=== PATIENT | male | born 1930 | race Caucasian/White ===

== ENCOUNTER 2017-07-24 08:16 | Inpatient (IN) | payer OTHER ==
[2017-07-24] VITALS (10 sets, daily range): BP systolic 123–165; BP diastolic 59–97
[~2017-07-24] VITALS: Ht 177.8 cm; Wt 107.0 kg
[~2017-07-24 08:16] MED LIST: ACETAMINOPHEN650 M5 PO; ADULT LOW DOSE81 MG PO; BACTRIM DS TAB1 EACH PO; BUMETANIDE 1 MG1 M1 PO; CALCIUM +D & M1 EACH PO; CALCIUM 600 +1 EAC5 PO; COLACE100 MG PO; EFFIENT10 MG PO; ELIQUIS5 MG PO; ISOSORBIDE MONO30 M1 PO; K-DUR 20 MEQ T20 MEQ PO; KLOR-CON 1010 MEQ; LASIX 40 MG TAB40 M1 PO; LAXATIVE17.2 MG PO; LISINOPRIL20 MG PO; LOPRESSOR 50 MG50 M1 PO; LUMIGAN2.5 M1; LUMIGAN2.5 M1 OPHTHALMIC; MULTIVITAMINS PO; NITROSTAT0.4 MG SL; PACERONE 200 M200 M1 PO; PACERONE 200 M200 MG PO; PLAVIX 75 MG TA75 MG PO; POLYVINYL ALCOH15 ML; POTASSIUM20 PO; PRADAXA150 MG PO; PREVACID15 MG PO; RANEXA 500 MG500 M1 PO; SIMVASTATIN20 MG PO; SIMVASTATIN40 MG PO; STOOL SOFTENER50 MG
[2017-07-24] MEDS ORDERED: MIRALAX17 GM PO (08:32)
[2017-07-24] MEDS ORDERED: PRESERVISION T1 EACH PO (08:32)
--- NOTE | 2017-07-24 08:42 | NUR ---
STEMI CALLED BY DR. FARRAR. SEE STEMI FLOWSHEET FOR DOCUMENTATION.
--- NOTE | 2017-07-24 08:51 | NUR ---
PT SENT TO CARDIAC BORDER INSPECTOR W/ BORDER INSPECTOR STAFF, DR. SHAH & NSG PT ESCORT [place]. MONITORING IN PROGRESS W/ LIFEPAK & DEFIB PADS IN PLACE. SON TO CARDIAC BORDER INSPECTOR W/ WINE CONSULTANT, PT'S BELONGINGS W/ SECURITY. UNABLE TO OBTAIN IV ACCESS DUE TO POOR VEINS.
[2017-07-24 09:11] LABS: ABSOLUTE BASOPHILS 0.1 thou/uL (0.0-0.2); ABSOLUTE LYMPHOCYTES 1.2 thou/uL (0.8-5.3); ABSOLUTE MONOCYTES 0.5 thou/uL (0.0-1.2); ABSOLUTE NEUTROPHILS 8.5 thou/uL (1.6-8.1); BASOPHILS 1.2 %; EOSINOPHILS 0.4 %; HEMOGLOBIN 13.9 gm/dL (14.0-18.0); MCH 31.3 pg (26.0-34.0); MCHC 33.9 g/dL (28.0-37.0); MCV 92.5 fL (80.0-100.0); MONOCYTES 4.7 %; NUCLEATED RBCS 0 /100WBC; PLATELET COUNT* 336 thou/uL (150-400); POLYS 81.7 %; RBC 4.43 mil/uL (4.50-6.00); RDW-CV 14.4 % (10.5-14.5); WBC 10.4 thou/uL (4.0-11.0)
[2017-07-24 09:15] LABS: CALCIUM 8.5 mg/dL (8.5-10.1); CREATININE 1.2 mg/dL (0.6-1.3); POTASSIUM 4.2 mmol/L (3.5-5.1)
[2017-07-24 09:26] LABS: ALBUMIN 3.4 g/dL (3.4-5.0); TOTAL BILIRUBIN 0.4 mg/dL (<0.1-1.0); TOTAL PROTEIN 7.3 g/dL (6.4-8.2); TROPONIN-I LEVEL 0.48 ng/mL (<0.06)
[2017-07-24 09:29] LABS: INR 1.2; PROTIME 11.2 Seconds (9.20-11.50)
--- NOTE | 2017-07-24 11:18 | CARD ---
[address] [address] CARDIAC CATH REPORT Name: RAQUEL HAMMONDS Diego MCCONNELL Room: [address] IN .R.#: [id number] Admission: 07/24/17 Attend Phys: Dakota Linn MD, F Discharge: Date of : 12/29/28 Report #: [id number] THIS REPORT FOR: //name// APPROVED REPORT Patient Details Patient Status: In-Patient Room #: The patient is a 86 year-old male Event Personnel Betzy Canales RN Professor Of Engineering, Melanie Carter Monitor, Rjani Dao RTR Temitope Duron David Multimedia Authoring Specialist Procedures Performed Art Access - R femoral artery* , Indication STEMI Risk Factors Arterial Hypertension, Hypercholesterolemia, Coronary Artery Disease Previous Procedures/Diagnoses Previous PCI Admission/Lab Medications/Medications given during procedure Platelet Aff. Inhib., Heparin Unfract. Procedure Narrative The patient was brought emergently to the Cardiac Catheterization Laboratory and was prepped and draped in a sterile manner. The right femoral was infiltrated with 1% Lidocaine subcutaneous anesthesia. A 6fr Ultimum Sheath sheath was inserted into the right femoral artery. Coronary angiography was performed using coronary diagnostic catheters. The right coronary system was accessed and visualized with a Diagnostic - JR4 catheter. The left coronary system was accessed and visualized with a Diagnostic - JL4 catheter. The left ventricle was accessed and visualized with a Diagnostic - PIGTAIL catheter. Left ventricular/Aortic Valve gradient assessed via catheter pullback. Left ventriculogram was performed in MEYER projection. Pre-demployment femoral angiogram was performed . Closure device was deployed with a 6 Fr Angioseal STS 6Fr. The patient tolerated the procedure well and there were no complications associated with the procedure. There was no hematoma. Long 6 [place] [address] CARDIAC CATH REPORT Name: RAQUEL HAMMONDS SR Room: [address]#: [id number] Admission: 07/24/17 Attend Phys: Dakota Linn MD, F Discharge: Date of : 12/29/28 Report #: [id number] right femoral artery because of tortuosity of the iliac artery. Because of poor venous access, a 5 citizen [place] sheath was placed in the right femoral vein. Venous sheath was sutured in place at the end of the procedure. Intraoperative Conscious Sedation Fentanyl 25 mcg Fluoro Time: 9.5 minutes Dose: DAP 745196 cGycm2 1697.67 mGy Contrast Type and Amount: Visipaque 145 ml Coronary Angiography The patient's coronary anatomy is right dominant. Diagnostic Cath Left Main 0% stenosis LAD Ostial 70% stenosis. Stent in the proximal lad that covered the takeoff of a small first diagonal branch had 0% restenosis. Mid lad had a 50% stenosis Diagonal 1 small first diagonal branch had an ostial 80% stenosis Circumflex 0% stenosis OM2 long metal stent had a mid 99% stenosis with thrombus Right Coronary ostial stent had a 40% eccentric stenosis Left Ventriculography The left ventricle is mildly dilated in size with contractility. The left ventricular ejection fraction is estimated to be 40-45%. Left ventricular wall motion abnormalities are present. There is 1+ mitral insufficiency. moderate hypokinesis noted of the distal anterolateral wall Hemodynamics The aortic pressure is 179/70 mmHg with a mean of 100 mmHg. The left ventricular pressure is 163/18 mmHg with a mean of mmHg. The left ventricular end diastolic pressure is 34 mmHg. There was no gradient across the aortic valve upon pullback. Pullback from the left ventricle to the aorta revealed no gradient across the aortic valve. PCI Technique Lesion Anticoagulation was achieved with Heparin. iv aggrastat given Percutaneous coronary intervention was performed on the second obtuse marginal branch segment. The lesion stenosis prior to intervention was 99% with KATHRYN 3 flow. A 6F XB 4.0 [place] [address] CARDIAC CATH REPORT Name: RUSSELALEXIRAQUEL Crotez SR Room: [address]#: [id number] Admission: 07/24/17 Attend Phys: Dakota Linn MD, F Discharge: Date of : 12/29/28 Report #: [id number] engage the lm ostium. A IG: BMW 190cm Interventional Guidewire was used to cross the lesion. BALLOON DILATION A Balloon catheter Trek RX 2.5 X 8 was inserted and inflated up to 18.00atm for 16seconds. Repeat angiography revealed the following post-dilatation results: 60% stenosis. STENT DEPLOYMENT A bare metal stent Vision RX 3.5 X 15 was inserted and inflated up to 9.00atm for 12seconds. Repeat angiography revealed the following post-stent deployment results: 0% stenosis. Additional Inflation: 10.00atm for 13seconds. Final angiography reveals 0 % stenosis with KATHRYN 3 flow. Conclusion 1. no restenosis noted of the stents in the proximal lad and rca 2. 99% restenosis with thrombus noted in the stent in the second marginal branch of the circumflex 3. successful placement of a new bare metal stent in the second marginal branch Recommendations Cardiac Rehabilitation Referral Aggressive Medical Therapy Medications Administered Clopidogrel <ELECTRONICALLY SIGNED> By: Dakota Linn MD, FACC 07/24/17 1118 1118 [id number] Linn MD, FACC /INF
--- NOTE | 2017-07-24 13:32 | NUR ---
CONSULTED TO PLACE MIDLINE FOR PT POST STEMI WITH FEMORAL ACCESS AND DIFFICULT PIV STICK. RISK AND BENIFITS DISCUSSED WTIH PT. VERBALIZED UNDERTANDING AND GRANTED CONSENT. ORDER NOTED AND PER PT REQUEST LEFT ARM ASSESSED AND BASILIC IDENTIFIED AND IS WIDLEY PATENT. A 4FR POWER INJECTABLE MIDLINE PLACED AFTER TIME OUT WITH PRIMARY RN PER HOSPITAL POLICY. LINE TRIMMED TO 11CM AND ADVANCED TO 0CM OUT WITH OUT DIFFICULTY. LINE SECURED AND RELEASED FOR USE. TOLERATED WELL.
--- NOTE | 2017-07-24 13:46 | EKG ---
[place] [address] ELECTROCARDIOGRAM REPORT Name: RAQUEL HAMMONDS Room: [address] ADM IN M.R.#: [id number] Admission: 07/24/17 Attend Phys: Dakota Linn MD, F Discharge: Date of : 12/29/28 Report #: [id number] THIS REPORT FOR: //name// [facility] Test Date: 2017-07-24 Test Time: 11:24:29 Pat Name: RAQUEL HAMMONDS Department: Room: [facility] Gender: M Lead Caregiver: : 1930 Requested By: Eladio Gordon Order Number: [id number] MD: Favio Kinsey Measurements Intervals [place] Rate: 62 P: 40 [place]: 164 QRS: 3 QRSD: 105 T: 68 QT: 473 QTc: 481 Interpretive Statements Sinus arrhythmia Low voltage, extremity and precordial leads Borderline prolonged QT interval Compared to ECG 08/30/2012 07:57:57 Low QRS voltage now present Sinus rhythm no longer present Myocardial infarct finding no longer present Electronically Signed On 07-24-2017 13:45:52 BINDERY MACHINE TENDER by Favio Kinsey [email or web address] <ELECTRONICALLY SIGNED> By: Favio Kinsey MD, [facility] 07/24/17 1345 1124 1124 Favio Kinsey MD, [facility] /EPI
--- NOTE | 2017-07-24 16:33 | EKG ---
[place] [address] ELECTROCARDIOGRAM REPORT Name: RAQUEL HAMMONDS Room: [address] ADM IN M.R.#: [id number] Admission: 07/24/17 Attend Phys: Dakota Linn MD, F Discharge: Date of : 12/29/28 Report #: [id number] THIS REPORT FOR: //name// [facility] ED Test Date: 2017-07-24 Test Time: 08:19:40 Pat Name: RAQUEL HAMMONDS Department: Room: [address] Gender: M Business Executive: MS : 1930 Requested By: Dakota Linn Order Number: [id number] Reading MD: Favio Kinsey Measurements Intervals [place] Rate: 56 P: 36 DC: 157 QRS: -8 QRSD: 98 T: 3 QT: 485 QTc: 469 Interpretive Statements Sinus rhythm Low voltage, precordial leads Posterior infarct, acute (LCx) Lateral leads are also involved Compared to ECG 08/30/2012 07:57:57 Low QRS voltage now present Prolonged QT interval no longer present Myocardial infarct finding still present Electronically Signed On 07-24-2017 16:33:07 TURBINE ENGINE ASSEMBLER by Favio Kinsey [email or web address] <ELECTRONICALLY SIGNED> By: Favio Kinsey MD, FACC 07/24/17 1633 8 8 Favio Kinsey MD, FAC /EPI
--- NOTE | 2017-07-24 16:33 | EKG ---
[place] [address] ELECTROCARDIOGRAM REPORT Name: RAQUEL HAMMONDS Room: [address] ADM IN M.R.#: [id number] Admission: 07/24/17 Attend Phys: Dakota Linn MD, F Discharge: Date of : 12/29/28 Report #: [id number] THIS REPORT FOR: //name// [facility] ED Test Date: 2017-07-24 Test Time: 08:38:17 Pat Name: RAQUEL HAMMONDS Department: Room: [address] Gender: M Skein Winder: MS : 1930 Requested By: Dakota Linn Order Number: [id number] Reading : Favio Kinsey Measurements Intervals [place] Rate: 57 P: 10 [place]: 131 QRS: -8 QRSD: 104 T: 14 QT: 520 QTc: 507 Interpretive Statements Sinus rhythm Low voltage, precordial leads RSR' in V1 or V2, right VCD or RVH Borderline ST elevation, lateral leads Prolonged QT interval Compared to ECG 08/30/2012 07:57:57 Low QRS voltage now present Right ventricular hypertrophy now present RSR' in V1 or V2 now present ST (T wave) deviation now present Myocardial infarct finding no longer present Electronically Signed On 07-24-2017 16:33:18 CERTIFIED ORTHOTIST by Favio Kinsey [email or web address] <ELECTRONICALLY SIGNED> By: Favio Kinsey MD, [facility] 07/24/17 1633 7 7 Favio Kinsey MD, [facility] /EPI
--- NOTE | 2017-07-24 17:04 | H ---
[address] [address] HISTORY AND PHYSICAL Name: RAQUEL HAMMONDS SR Room: [address] IN M.R.#: [id number] Admission: 07/24/17 Attend Phys: Dakota Linn MD, F Discharge: Date of : 12/29/[birth year] Report #: [id number] THIS REPORT FOR: //name// CC: Dakota Savage DATE OF SERVICE: 07/24/2017 HISTORY OF PRESENT ILLNESS: The patient is an 86-year-old single white male who I was asked to see in the Emergency Room today after complaining of chest pain. The patient has an extensive past medical history. He has had up to 4 coronary artery stents placed in the past here at [facility]. He has been followed by my partner, Dr. Savage. He has a history of atrial fibrillation in the past and has been on amiodarone and Eliquis. He last saw Dr. Savage in March. He is not very active because of his age. He uses a walker. He does get short of breath with exertion. He notes occasional irregular heartbeat, but he has had no syncope. He awakened about 4 hours ago with a pain in his chest, went into his left arm, became short of breath and nauseated. The pain persisted. He called an ambulance. He was brought here to [facility]. A code STEMI was activated. I was asked to see him on an emergent basis. 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 He has a history of mild carotid stenosis, chronic kidney disease, hypertension, hyperlipidemia, sleep apnea. MEDICATIONS: Consists of amiodarone, Eliquis which he took last night, aspirin, furosemide, Imdur, lisinopril, simvastatin. ALLERGIES: He has INTOLERANCE TO FISH OIL. FAMILY HISTORY: His mother had a heart attack. SOCIAL HISTORY: He is , lives with his son in [place]. Quit smoking years ago. No alcohol abuse. REVIEW OF SYSTEMS: He apparently has had a TIA in the past. No history of asthma. He has had a peptic ulcer, no liver disease. He has chronic kidney disease, had a skin cancer removed in the past. PHYSICAL EXAMINATION: GENERAL: Revealed obese elderly male, appeared in mild distress. VITAL SIGNS: He had a blood pressure of 130/70, pulse is 60. HEENT: Mucous membranes appear dry. He was anicteric. Conjunctivae pink. NECK: Veins difficult to assess due to obesity. CHEST: [place] [address] HISTORY AND PHYSICAL Name: RUSSELALEXIRAQUEL Cortez SR Room: [address] IN .R.#: [id number] Admission: 07/24/17 Attend Phys: Dakota Linn MD, F Discharge: Date of : 12/29/28 Report #: [id number] CARDIOVASCULAR: Regular rate and rhythm. No significant murmur. ABDOMEN: Obese, soft, nontender. EXTREMITIES: Had trace edema. SKIN: Cool and dry. LABORATORY DATA: ECG, sinus bradycardia. There appeared to be ST segment elevation in 1 and aVL, ST segment depression in V2 and V3. IMPRESSION AND RECOMMENDATIONS: 1. ST-elevation myocardial infarction. Recommend cardiac catheterization. 2. Coronary stenting. The patient has been on aspirin. 3. History of atrial fibrillation. The patient is on Eliquis and amiodarone. 4. Hypertension. The patient is on an [place] inhibitor. 5. Hyperlipidemia. The patient is on a statin drug. 6. Chronic kidney disease. 7. Sleep apnea. The patient on CPAP. <ELECTRONICALLY SIGNED> By: Dakota Linn MD, FACC 07/24/17 1704 9 [id number] Linn MD, FACC /nt
--- NOTE | 2017-07-24 18:45 | NUR ---
PATIENT DOING WELL, SHEATH REMOVED, SITTING UP EATING DINNER. JUST GAVE TYLENOL FOR PAIN, NO COMPLAINTS OF SHORTNESS OF AIR OR NAUSEA. FAMILY HAS BEEN HERE TO SEE PATIENT. ALL QUESTIONS ANSWERED. MID LINE PLACED TODAY, OOZING, AGGRISTAT TO STOP AFTER THIS BAG. NO OTHER CONCERNS. BED IN LOWEST POSITION, CALL LIGHT IN REACH. WILL CONTINUE TO MONITOR.
[2017-07-25] VITALS (15 sets, daily range): BP systolic 114–167; BP diastolic 64–85
[2017-07-25 05:12] LABS: HEMATOCRIT 38.8 % (42.0-52.0); HEMOGLOBIN 13.2 gm/dL (14.0-18.0); MCH 33.8 pg (26.0-34.0); MCHC 33.9 g/dL (28.0-37.0); MPV 7.6 fl. (7.2-11.1); RBC 3.89 mil/uL (4.50-6.00); RDW-CV 12.1 % (10.5-14.5); WBC 6.2 thou/uL (4.0-11.0)
[2017-07-25 05:22] LABS: ANION GAP 10 mmol/L (7-16); BUN 24 mg/dL (7-18); CALCIUM 8.2 mg/dL (8.5-10.1); CHLORIDE 106 mmol/L (98-107); CHOLESTEROL 125 mg/dL (<200); CO2 24 mmol/L (21-32); CREATININE 1.1 mg/dL (0.6-1.3); GLUCOSE 113 mg/dL (70-99); HDL CHOLESTEROL 53 mg/dL (>40); LDL CHOLESTEROL 66 mg/dL (<100); POTASSIUM 4.2 mmol/L (3.5-5.1); SODIUM 140 mmol/L (136-145); TC:HDL 2.4 Ratio (Not establshd); TRIGLYCERIDE 32 mg/dL (<150); VLDL 6 mg/dL (<40)
[2017-07-25 05:23] LABS: SERUM ASSESSMENT Clear
--- NOTE | 2017-07-25 05:32 | NUR ---
RIGHT GROIN SITE DRESSING REMAINS C/D/I, NO HEMATOMA NOTED. MCCORD CATHETER REMOVED LAST NIGHT DUE TO BLOCKAGE, UNABLE TO IRRIGATE. BLOOD TINGED URINE NOTED IN BAG. PT HAS BEEN INCONTINENT SINCE THEN, ADEQUATE PINKISH COLORED OUTPUT NOTED IN CHUX PAD X2, JIMY CARE PROVIDED EACH TIME. DURING LAST INSTANCE PT HAD VOIDED 100ML IN URINAL AND STATED HE WAS UNABLE "TO MAKE IT IN TIME" WHICH CAUSED THE URINE LEAKAGE INTO THE CHUX. PT DENIES FEELING BLADDER FULLNESS POST VOID, BLADDER IS NOT PALPABLE. PT HAS DENIED CHEST PAIN AND SOA THROUGHOUT THIS SHIFT. O2 SAT HAS REMAINED >92% ON RA. PT C/O BACK PAIN X1, PRN HYDROCODONE GIVEN ORDERED WITH COMPLETE RELIEF, PT WAS ABLE TO SLEEP. CALL LIGHT WITHIN REACH.
[2017-07-25 05:42] LABS: MCV 99.6 fL (80.0-100.0)
--- NOTE | 2017-07-25 12:48 | EKG ---
[place] [address] ELECTROCARDIOGRAM REPORT Name: RAQUEL HAMMONDS Room: [address] ADM IN M.R.#: [id number] Admission: 07/24/17 Attend Phys: Dakota Linn MD, F Discharge: Date of : 12/29/[birth year] Report #: [id number] THIS REPORT FOR: //name// [facility] Test Date: 2017-07-25 Test Time: 08:07:10 Pat Name: RAQUEL HAMMONDS Department: Room: [address] Gender: M Senior Software Test Engineer: : 1930 Requested By: Dakota Linn Order Number: [id number] Reading MD: Dakota Linn Measurements Intervals [place] Rate: 73 P: 41 ME: 186 QRS: 5 QRSD: 100 T: QT: 457 QTc: 504 Interpretive Statements Sinus rhythm Low voltage, extremity and precordial leads Probable anteroseptal infarct, old Nonspecific T abnormalities, lateral leads Prolonged QT interval Compared to ECG 07/24/2017 11:24:29 no change Electronically Signed On 07-25-2017 12:48:19 GRAILS WEB APPLICATION DEVELOPER by Dakota Linn [email or web address] <ELECTRONICALLY SIGNED> By: Dakota Linn MD, [facility] 07/25/17 [phone] 0807 Dakota Linn MD, [facility] /EPI
--- NOTE | 2017-07-25 17:41 | NUR ---
REPORT RECIEVED FROM SHRUTI RN IN ICU OF EXPECTED TRANSFER @ 1640- DX: STEMI WITH CATH COMPLETED 07/24/17- PT ARRIVED TO UNIT VIA W/C TO ROOM 233 AT 1730- MULTIPLE SPINDLE ROUTER OPERATOR PLACED ORDERED, TRACING SR- VS 97.6 20 114/70 86 99% ON RA- COURSE LUNG SOUNDS NOTED WITH NON-PRODUCTIVE COUGH-ABDOMEN SOFT/ROUND/NON-TENDER, BS X4 QUADS- PT REPORTS LAST BM PRIOR TO ADMISSION-2+ EDEMA NOTED, LEG ELEAVATION ENCOURAGED- RIGHT GROIN SIGHT C/D/I INTACT AND DIRECT OF REAL ESTATE, NO HEMATOMA NOTED- LEFT UE MIDLINE NOTED, DRESSING INTACT WITH DRY BLOOD NOTED-PT DENIES ANY C/O PAIN/DISCOMFORT AT THIS TIME- CALL LIGHT AND PERSONAL BELONGINGS WITH IN REACH- BED ALARM IN PLACE AND WORKING FOR PT SAFETY- HOURLY ROUNDS IN PLACE R/T SAFETY/NEEDS- ALL NEEDS MET AT THIS TIME-WCTM
[2017-07-26] VITALS (8 sets, daily range): BP systolic 97–136; BP diastolic 55–72
--- NOTE | 2017-07-26 05:46 | NUR ---
ASSUMED CARE AROUND 1930. PT A/OX4 AND PLEASANT, TELIDA. RESTED SOME TONIGHT. TELE TRACING SR THEN AFIB WITH HR UP TO 110'S- HX AFIB. ON ROOM AIR. MIDLINE SL. DENIES ANY PAIN. VOIDING PER URINAL. VSS, AFEBRILE. NO NEW CONCERNS VOICED. SEE CHARTING. CALL LIGHT IN REACH, BEDALARM IN PLACE, WILL CONTINUE WITH PLAN OF CARE.
--- NOTE | 2017-07-26 11:30 | NUR ---
MET WITH PT AND /ERVIN TO DISCUSS HOME SITUATION/DC PLANNING. PT LIVES WITH SONS/CESAR AND SD. CESAR IS RETIRED BUT SD STILL WORKS AND IS GONE 'ALOT.' PT HAS BEEN FAIRLY INDEPENDENT AT HOME. USES WALKER OR CANE AND HAS 2 OF EACH. HE DRIVES SOME. GOES OUT TO EAT FREQUENTLY AND ADMITS DOESN'T FOLLOW A SPECIAL DIET. PT AND ERVIN BOTH STATE THEY ARE INTERESTED IN SNF, NOT SURE SONS CAN ASSIST PT AT HOME ENOUGH. DISCUSSED FACILITIES AND QUALIFIERS FOR SNF, AWAIT THERAPY EVALS. DISCUSSED OPTIONS, THEY ARE INTERESTED IN [facility], CALL TO [facility], THEY ARE AT [facility] AND HAVE NO BEDS. PER ERVIN, MOST OF THE FAMILY LIVES NEAR [facility] AND THEY PREFER TO CONSIDER OPTIONS THERE. THEY CHOSE EITHER [facility] (1) OR [facility] (2). CALLED AND FAXED INITIAL REFERRAL TO [facility]. WILL FAX PT/OT NOTES WHEN OBTAINED
--- NOTE | 2017-07-26 13:01 | NUR ---
RECEIVED PT CARE 0700. PT IS ALERT AND ORIENTED X4. VSS. ACTUARY CLERK TRACING AFIB. PATIENT DENIES ANY SOA. O2 SAT 95% ON ROOM AIR. VOIDING PER URINAL. UP TO THE EDGE OF BED FOR BREAKFAST. AM ASSESSMENT CHARTED. MEDS PER MAR. MEDICATIONS ADJUSTED PER CARDIOLOGY. PLANNING TO KEEP PATIENT ANOTHER NIGHT AND DC TO SNF TOMORROW. CALL LIGHT WITHIN REACH. WILL CONTINUE TO MONITOR.
[2017-07-27 00:02] VITALS: BP 109/63
[2017-07-27 04:00] VITALS: BP 119/74
--- NOTE | 2017-07-27 04:26 | NUR ---
Pt in afib at beginning of shift. BP 100/60; held bedtime dose of lisinopril. At 2324, pt converted to SR; remains in SR to this time. C/O heartburn/upset stomach early in shift, lemon-grand portage soda given. Afterwards, pt states he feels better. No complaints otherwise. Will continue to monitor.
[2017-07-27 07:30] VITALS: BP 139/81
--- NOTE | 2017-07-27 12:15 | EKG ---
[place] [address] ELECTROCARDIOGRAM REPORT Name: RAQUEL HAMMONDS SR Room: [place] [address] ADM IN M.R.#: [id number] Admission: 07/24/17 Attend Phys: Dakota Linn MD, F Discharge: Date of : 12/29/[birth year] Report #: [id number] THIS REPORT FOR: //name// [facility] Test Date: 2017-07-27 Test Time: 08:58:17 Pat Name: RAQUEL HAMMONDS Department: Room: [place] [address] Gender: M Bicycle Assembler: : 1930 Requested By: Dakota Linn Order Number: [id number] MD: Dakota Linn Measurements Intervals [place] Rate: 77 P: 45 [place]: 198 QRS: 0 QRSD: 87 T: 151 QT: 539 QTc: 611 Interpretive Statements Sinus rhythm Low voltage, extremity and precordial leads Nonspecific T abnormalities, lateral leads Prolonged QT interval Compared to ECG 07/25/2017 08:07:10 No significant changes Electronically Signed On 07-27-2017 12:15:26 DYE LINE OPERATOR by Dakota Linn [email or web address] <ELECTRONICALLY SIGNED> By: Dakota Linn MD, [facility] 07/27/17 1215 0858 0858 Dakota Linn MD, [facility] /EPI
--- NOTE | 2017-07-27 12:30 | NUR ---
CONTINUE TO FOLLOW, MET WITH PT AND SPOKE WITH SON/CESAR OVER THE PHONE. PT STILL AGREEABLE TO SNF. DISCUSSED [facility] WITH PT AND GAVE UPDATE TO CESAR. ORDERS NOTED FOR DC. SPOKE WITH [facility]/PO, AWAIT INSURANCE AUTH
[2017-07-27 12:31] VITALS: BP 134/72
[2017-07-27] MEDS ORDERED: PLAVIX 75 MG TA75 M1 PO (14:37)
[2017-07-27] MEDS ORDERED: NORCO 10-325 T1 EACH PO (14:37)
[2017-07-27] MEDS ORDERED: AMBIEN 5 MG TABL5 M1 PO (14:38)
--- NOTE | 2017-07-27 15:10 | NUR ---
RECEIVED DISCHARGE ORDERS PER DR SHAH. PATIENT AGREEABLE TO DC TO SNF. IV DISCONTINUED. SERVICE PLANNER REMOVED AND RETURNED TO NURSE'S DESK. ALL BELONGINGS ARE PACKED AND LEAVING WITH PATIENT. REPORT CALLED TO JACKIE DE LEON AT [facility]. NO QUESTIONS OR CONCERNS AT DISCHARGE. LEAVING VIA WHEELCHAIR VAN.
--- NOTE | 2017-07-28 13:28 | D ---
[address] [address] DISCHARGE SUMMARY Name: RUSSELALEXIRAQUEL SR Room: [address] [place] .R.#: [id number] Admission: 07/24/17 Attend Phys: Dakota Linn MD, F Discharge: 07/27/17 Date of : [birth year] Report #: [id number] THIS REPORT FOR: //name// CC: Dakota Savage DATE OF SERVICE: 07/27/2017 DISCHARGE DIAGNOSES: 1. ST segment elevation myocardial infarction. 2. Coronary artery disease. 3. Paroxysmal atrial fibrillation. 4. Hypertension. 5. Hyperlipidemia. 6. Sleep apnea. CONSULTANTS: None. PROCEDURES: Emergent left heart catheterization with placement of a single bare-metal stent to circumflex artery via the femoral approach. HISTORY OF PRESENT ILLNESS: The patient is an 86-year-old single white male who came to the emergency room complaining of chest pain. The patient has had multiple coronary artery stents in the past with stents in the LAD, circumflex, and right coronary artery. He has been followed by my partner, Dr. Savage. He also has a history of atrial fibrillation in the past and has been on amiodarone and anticoagulant, Eliquis. He actually last saw Dr. Savage in March when he was doing well with no complaints. The patient does have chronic edema for which he takes Lasix. The patient is not very active because of his age. However, he continues to live by himself. The patient uses a walker and does get short of breath with exertion. He notes occasional skipped heartbeat. On the day of admission, he awakened at about 4:00 a.m. with the pain in his chest, went into his arm, became short of breath and nauseated. The pain persisted. An ambulance was brought him to [place] emergency room. When he arrived here, ECG showed ST segment elevation. A code STEMI was activated. 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 MEDICATIONS: Consists of amiodarone, Eliquis, aspirin, furosemide, Imdur, lisinopril, and simvastatin. ALLERGIES: He has an [place] [address] DISCHARGE SUMMARY Name: RAQUEL HAMMONDS Diego MCCONNELL Room: [address]#: [id number] Admission: 07/24/17 Attend Phys: Dakota Linn MD, F Discharge: 07/27/17 Date of : [birth year] Report #: [id number] PHYSICAL EXAMINATION ON ADMISSION: VITAL SIGNS: Blood pressure 130/70, pulse is 60. CHEST: Clear to auscultation. HEART: Regular rate and rhythm. ABDOMEN: Obese. EXTREMITIES: Had trace edema. SKIN: Cool and dry. ECG showed sinus bradycardia. There was ST segment elevation in 1 and aVL, ST segment depression in V2 and V3. He had a portable chest x-ray on admission that showed atelectasis. His lab work, sodium 140, potassium 4.2, BUN is 24, creatinine 1.1, and glucose 113. His liver function studies were normal. Troponin on admission was 0.48. His cholesterol 125, triglycerides 32, HDL 53, LDL 66. His TSH is low at 0.286, although the T4 was normal at 0.98. White blood cell count 10.4, hemoglobin 13.9. HOSPITAL COURSE: The patient was taken urgently to the cardiac catheterization lab. I performed urgent cardiac catheterization from the right femoral artery. The LAD had an ostial 70% stenosis. There was a stent in the mid LAD had 50% restenosis. There was a small diagonal branch had an 80% stenosis. The circumflex had a stent with 99% in-stent restenosis with thrombus. The right coronary had a stent with 40% restenosis in its ostium. He was then given Aggrastat and heparin. I performed balloon angioplasty and placed a new drug-eluting stent in the circumflex. The procedure required a long arterial sheath because of very tortuous iliac artery. In addition, I placed a venous sheath because the patient had poor venous access. His EDP was elevated, he was given 40 of Lasix. Ejection fraction was estimated at 45%. He tolerated the procedure well and had no further chest pain or heart failure. However, the next day he did go back into atrial fibrillation and I gave him additional IV amiodarone and increased his oral dose. He then converted back to sinus rhythm. Fortunately, the patient had no further chest pain. Prior to discharge, he was ambulating only short distances. He did not appear safe to return home to live by himself because of his poor conditioning. It was therefore decided to discharge him to a nursing home unit. At the time of discharge, the patient was ambulating, had no further complaints. He developed no hematoma in the groin. His blood pressure 130/80, pulse 70. At the time of discharge, he was in sinus rhythm with no QT prolongation. He was discharged on his home medications, though amiodarone was increased to 200 mg twice a day. He was to continue his Eliquis because of atrial fibrillation and the patient was discharged on a full dose of 5 mg every 12 hours since his GFR was 63. Because of the stent, he was taking aspirin 81 mg a day, furosemide 20 mg a day for his edema, Imdur 30 mg a day because of diffuse coronary disease, Prinivil 20 mg twice a day, simvastatin 20 mg at bedtime. Because of the stent, he was started on Brilinta 90 mg twice day. He was discharged to return to the care of Dr. Null for routine medical care. He is [place] [address] DISCHARGE SUMMARY Name: RAQUEL HAMMONDS SR Room: [address]#: [id number] Admission: 07/24/17 Attend Phys: Dakota Linn MD, F Discharge: 07/27/17 Date of : [birth year] Report #: [id number] in 1 week. He will continue to see Dr. Savage in the cardiology clinic in 6 weeks. His prognosis is guarded due to his age and diffuse coronary artery disease. The results were discussed with the patient, it was felt he had restenosed one of the stents, and I performed an emergent repeat stenting. His peak troponin was . Followup creatinine was 1.1 and followup hemoglobin was 13.2. He was to contact my office if he had recurrent palpitations or chest pain. I would recommend since this is a bare-metal stent, that after one month, he will be taken off of the aspirin and continue the Eliquis and Plavix 75 mg a day only. I believe he is a high risk for bleeding because of his advanced age and poor balance. <ELECTRONICALLY SIGNED> By: Dakota Linn MD, FACC 07/28/17 1328 [id number] Linn MD, FACC /nt
== END 2017-07-27 16:22 | DRG 248 ==
LOC: M.CL 08:16 → M.ERS 08:16 → M.ICU 08:51 → M.TBA-CV 08:51 → M.ICU 10:44 → M.2W 07-25 17:15
PROVIDERS: Emergency Medicine; ADMIT Internal Medicine Cardiovascular Disease
PROC: B211YZZ Fluoroscopy of Multiple Coronary Arteries using Other Contrast (ICD-10-PCS; principal; 2017-07-24)
PROC: 05HC33Z Insertion of Infusion Device into Left Basilic Vein, Percutaneous Approach (ICD-10-PCS; principal; 2017-07-24)
PROC: 4A023N7 Measurement of Cardiac Sampling and Pressure, Left Heart, Percutaneous Approach (ICD-10-PCS; principal; 2017-07-24)
PROC: 02703DZ Dilation of Coronary Artery, One Artery with Intraluminal Device, Percutaneous Approach (ICD-10-PCS; principal; 2017-07-24)
PROC: B215YZZ Fluoroscopy of Left Heart using Other Contrast (ICD-10-PCS; principal; 2017-07-24)
DX: T82.855A Stenosis of coronary artery stent, initial encounter (principal); I21.3 ST elevation (STEMI) myocardial infarction of unspecified site; I13.0 Hypertensive heart and chronic kidney disease with heart failure and stage 1 through stage 4 chronic kidney disease, or unspecified chronic kidney disease; K21.9 Gastro-esophageal reflux disease without esophagitis; E78.00 Pure hypercholesterolemia, unspecified; I50.9 Heart failure, unspecified; I25.10 Atherosclerotic heart disease of native coronary artery without angina pectoris; I48.0 Paroxysmal atrial fibrillation; N18.9 Chronic kidney disease, unspecified; Z82.49 Family history of ischemic heart disease and other diseases of the circulatory system; Z90.49 Acquired absence of other specified parts of digestive tract; I25.2 Old myocardial infarction; Z95.5 Presence of coronary angioplasty implant and graft; Z86.73 Personal history of transient ischemic attack (TIA), and cerebral infarction without residual deficits; Z91.041 Radiographic dye allergy status; Z91.013 Allergy to seafood

== ENCOUNTER → 2018-09-02 | Outpatient (CLI) | payer OTHER ==
[~2018-09-02] MED LIST changes: +AMBIEN 5 MG TABL5 M1 PO; +MIRALAX17 GM PO; +NORCO 10-325 T1 EACH PO; +PLAVIX 75 MG TA75 M1 PO; +PRESERVISION T1 EACH PO
== END ==
LOC: M.MRI 10:32
DX: M47.816 Spondylosis without myelopathy or radiculopathy, lumbar region (principal); M47.817 Spondylosis without myelopathy or radiculopathy, lumbosacral region; M48.061 Spinal stenosis, lumbar region without neurogenic claudication; I12.9 Hypertensive chronic kidney disease with stage 1 through stage 4 chronic kidney disease, or unspecified chronic kidney disease; N18.3 Chronic kidney disease, stage 3 (moderate); I48.91 Unspecified atrial fibrillation; I25.10 Atherosclerotic heart disease of native coronary artery without angina pectoris; E78.2 Mixed hyperlipidemia; E66.9 Obesity, unspecified; G47.30 Sleep apnea, unspecified; G89.29 Other chronic pain; Z91.018 Allergy to other foods; Z91.041 Radiographic dye allergy status

== ENCOUNTER → 2018-09-17 | Outpatient (CLI) | payer OTHER ==
[~2018-09-17] MED LIST changes: +TRAMADOL 50 MG50 MG PO
--- NOTE | ~2018-09-17 | PAINCON ---
[address] [address] PAIN MANAGEMENT CONSULTATION Name: RAQUEL HAMMONDS SR [id number] Admission: 09/17/18 Attend Phys: Laura Gotti MD Discharge: Date of : [birth year] Report #: [id number] THIS REPORT FOR: //name// CC: Esperanza Gotti DATE OF SERVICE: 09/17/2018 FOLLOWUP COMPLAINT: Pain when I get up. FOLLOWUP HISTORY: The patient is an 86-year-old gentleman who has been seen in the Pain Clinic because of chronic hip and back pain. He has undergone trigger point injections in the past. He has continued to have pain, which is problematic. States that getting up and ambulating is problematic. Notes that sometimes lying in bed, is sometimes helpful, but activity continues to be problematic. He has used a compound Blue-Emu, which is an [id number] ointment. It was felt that this has been helpful. He has some pain in his knees, particularly on the left side. Notes that the pain comes and goes. He feels that his "left side is a mess." He has some pain in the mid back area near the L5 and S1 paraspinous areas. He is unable to take a nonsteroidal anti-inflammatory medication. He did take a nonsteroidal anti-inflammatory medication and noted some improvement. He was required to stop this given that he is on Eliquis. He rates his pain today as a 7/10. Again, the pain is most problematic in the lower portion of his back with pain that radiates down into his left knee. Pain improves somewhat with rest. PAIN CLINIC ASSESSMENT/PQRS: 1. Osteoarthritis. The patient has osteoarthritic changes in his low back area. 2. Height 5 feet 10 inches, weight 242 pounds, BMI is 34.8. 3. Vital signs: Blood pressure 111/66, heart rate 78, respiratory rate 16, room air saturation 94%, temperature 97.9. 4. Pain intensity, 7/10. 5. Fall history: The patient has not fallen in the last 3 months. 6. Blood thinner. The patient is on a blood thinning medication Eliquis. He has a history of atrial fibrillation. 7. Hypertension. The patient is being treated for hypertension. 8. Opioids greater than 6 weeks. The patient is not on an opioid regimen. 9. Risk assessment tool, low for opioid use. 10. Functional assessment tool. 11. Recreational drug use. The patient denies use of recreational drugs. 12. Tobacco: The patient denies use of tobacco. 13. Alcohol: The patient denies frequent use of alcoholic beverages. PHYSICAL EXAMINATION: [place] [address] PAIN MANAGEMENT CONSULTATION Name: RAQUEL HAMMONDS SR Room: [facility]#: [id number] Admission: 09/17/18 Attend Phys: Laura Gotti MD Discharge: Date of : [birth year] Report #: [id number] GENERAL: The patient is a well-developed, 86-year-old gentleman. He is alert and oriented x 3. His affect is appropriate. Speech is fluent. HEENT: Normocephalic, atraumatic. Extraocular eye muscles intact. The patient is wearing glasses. His son is with him. NECK: Without adenopathy or JVD. HEART: Regular rate. LUNGS: Clear to auscultation. ABDOMEN: Protuberant. Bowel sounds present. EXTREMITIES: Upper extremity muscle strength is judged to be 4/5 for the major muscle groups in the upper extremity. Lower extremity patient's muscle strength is judged to be 4-/5 for the major muscle groups in his lower extremities. He walks with the use of a cane. Complains of pain and discomfort involving his left knee. He has some pain in the midlevel of his low back. IMPRESSION: 1. Chronic myofascial pain and right hip pain. 2. History of atrial fibrillation with chronic anticoagulation. 3. History of rheumatic fever. 4. Hypertension. 5. Stomach problems. 6. History of stroke. 7. Cardiovascular disease, status post stent placement in his heart. 8. Glaucoma. 9. Chronic kidney disease. 10. Hypercholesterolemia. 11. Obstructive sleep apnea. 12. Obesity. 13. Bilateral carotid artery disease. 14. Hyperlipidemia. RECOMMENDATIONS: We discussed treatment options with the patient. We explained the options. At this time, the patient does not seem to be a real good candidate for an epidural injection. He has somewhat global pain. His knee is problematic as well as areas of his mid back. I think to try a mild pain reliever like tramadol would be beneficial. The patient noticed improvements with the use of the nonsteroidal anti-inflammatory medication. He was requested by his doctor not to use it again because of his chronic anticoagulation status. We explained the use of tramadol. It is an opioid-like medication. It acts on the opioid receptors, but is not a true opioid medication. I think this could be a medication that could be quite helpful for this gentleman. He is unable to take nonsteroidal anti-inflammatories. He notices significant improvement in his pain after the use of the nonsteroidal anti-inflammatory medications. We have written a script for tramadol. He will take 3 tablets daily. A script for 1 p.o. t.i.d. 50 mg tramadol has been provided. The patient's son says that family other members have used this medication and found it to be fruitful. A script for his medication of tramadol 1 p.o. t.i.d. [place] [address] PAIN MANAGEMENT CONSULTATION Name: RAQUEL HAMMONDS SR Room: [facility]#: [id number] Admission: 09/17/18 Attend Phys: Laura Gotti MD Discharge: Date of : [birth year] Report #: [id number] We would like to thank you for letting us participate in his care. By: [id number]. Maxi Gotti MD /judit
== END ==
LOC: M.PC 05:32
DX: G89.29 Other chronic pain (principal); M19.90 Unspecified osteoarthritis, unspecified site; M25.551 Pain in right hip; I48.91 Unspecified atrial fibrillation; I12.9 Hypertensive chronic kidney disease with stage 1 through stage 4 chronic kidney disease, or unspecified chronic kidney disease; N18.9 Chronic kidney disease, unspecified; E78.00 Pure hypercholesterolemia, unspecified; G47.33 Obstructive sleep apnea (adult) (pediatric); E66.9 Obesity, unspecified; I65.23 Occlusion and stenosis of bilateral carotid arteries; E78.5 Hyperlipidemia, unspecified; Z79.891 Long term (current) use of opiate analgesic; Z86.73 Personal history of transient ischemic attack (TIA), and cerebral infarction without residual deficits